=== PATIENT | male | born 1970 | race Caucasian/White ===

== ENCOUNTER 2023-03-24 12:40 | Emergency (ER) | payer MEDICAID ==
[~2023-03-24] VITALS: Ht 165.1 cm; Wt 109.0 kg
[2023-03-24 13:12] LABS: BASOPHILS % 0.2 % (0.0-2.0); EOSINOPHILS % 0.3 % (0.0-5.0); HEMATOCRIT. 44.3 % (42.0-52.0); HEMOGLOBIN. 15.4 g/dL (14.0-18.0); LYMPHOCYTES % 21.1 % (20.0-50.0); MEAN CORPUSCULAR HEMOGLOBIN 29.4 pg (28.0-32.0); MEAN CORPUSCULAR VOLUME 84.5 fL (80.0-94.0); MEAN PLATELET VOLUME 9.3 fl (7.4-10.4); MONOCYTES % 14.3 % (2.0-8.0); NEUTROPHILS % 64.1 % (40.0-76.0); PLATELET 153 x1000/uL (130-400); RED BLOOD CELL COUNT 5.25 mill/uL (4.7-6.1); RED CELL DISTRIBUTION WIDTH 13.3 % (11.6-14.6)
[2023-03-24 13:24] LABS: CHLORIDE 99 mEq/L (98-107)
[2023-03-24] MEDS ORDERED: KETOROLAC 60MG/2ML VIAL IM ONE (15:30)
[2023-03-24 16:09] LABS: CLARITY URINE CLOUDY (CLEAR); COLOR URINE DARK YELLOW (YELLOW); KETONES URINE 1+ (NEGATIVE); LEUKOCYTE ESTERASE URINE TRACE (NEGATIVE); NITRITE URINE NEGATIVE (NEGATIVE); OCCULT BLOOD URINE NEGATIVE (NEGATIVE); PH URINE 5.5 (4.5-8.0); PROTEIN URINE 3+ (NEGATIVE); SPECIFIC GRAVITY URINE 1.032 (1.005-1.030)
[2023-03-24 16:33] LABS: T4 FREE 1.13 ng/dL (0.76-1.46)
[2023-03-24 16:49] VITALS: BP 119/83
[2023-03-24] MEDS ORDERED: CEPH500C2 MT (17:59)
[2023-03-24] MEDS ORDERED: IBUP-2029 MT (17:59)
[2023-03-24] MEDS ORDERED: TUSSL MT (18:07)
== END 2023-03-24 18:23 | disposition home or self-care (01) ==
LOC: ER 12:40
DX: G44.209 Tension-type headache, unspecified, not intractable (principal); N39.0 Urinary tract infection, site not specified
CPT/HCPCS: 36415; 71045; 80053; 81003; 84439; 84443; 84480; 84484; 85025; 85379; 93005; 96372; 99285; J1885